=== PATIENT | male | born 1980 | race Two or more races ===

== ENCOUNTER 2019-06-08 12:12 | Emergency (ER) | payer OTHER ==
[~2019-06-08] VITALS: Ht 175.3 cm; Wt 99.8 kg
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
[2019-06-08 13:30] VITALS: BP 117/60
--- NOTE | 2019-06-08 13:34 | RAD ---
Single view chest dated 06/08/2019: No comparison available. Clinical Indication: Chest pain. Findings: Single upright portable exam of the chest was performed. Heart size and mediastinal contours are within normal limits given technique. The lungs are clear without evidence of focal consolidation. Vascular interstitium is within normal limits. Impression:: Negative portable chest. Electronically signed by: Gilles Bowling MD (06/08/2019 1:31 PM) [facility] [place]
--- NOTE | 2019-06-08 13:35 | RAD ---
Five-view lumbar spine dated 06/08/2019. No comparison available. Clinical data indication: Pain. FINDINGS: AP, lateral, bilateral black and coned-down views of lumbosacral junction obtained. There is grade 1 anterolisthesis of L5 on S1. Sagittal alignment is otherwise anatomic. Vertebral body heights are maintained. Mild disc space narrowing at L4-L5 with mild endplate hypertrophic changes throughout. 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 IMPRESSION: 1. No acute radiographic abnormality. 2. Grade 1 spondylolisthesis and bilateral spondylolysis at L5-S1. 3. Mild lower lumbar spondylosis. Electronically signed by: Gilles Bowling MD (06/08/2019 1:32 PM) [facility] [place]
[2019-06-08] MEDS ORDERED: HYDR-3164 PO (13:44)
[2019-06-08] MEDS ORDERED: METH4TAB2 PO (13:44)
== END 2019-06-08 14:04 | disposition home or self-care (01) ==
LOC: ER 12:12
DX: M54.41 Lumbago with sciatica, right side (principal); R07.89 Other chest pain; V87.7XXA Person injured in collision between other specified motor vehicles (traffic), initial encounter; Y93.89 Activity, other specified; Y92.488 Other paved roadways as the place of occurrence of the external cause; Y99.8 Other external cause status
CPT/HCPCS: 71045; 72110; 99284